=== PATIENT | male | born 1955 | race Caucasian/White ===

== ENCOUNTER → 2019-10-12 | Outpatient (CLI) | payer OTHER ==
--- NOTE | 2019-10-12 15:17 | REPPI ---
TRANSRECTAL ULTRASOUND PROSTATE, WITH ULTRASOUND GUIDANCE FOR PROSTATE BIOPSY: Transrectal prostate ultrasound performed. Prostate measures 5.2 x 4.0 x 6.1 cm for a total volume of 66.4 mL. Scattered calcifications are present with heterogeneous echotexture of the prostate. No focal mass is seen. Seminal vesicles appear unremarkable. Ultrasound guidance was provided to Dr. Cornelisu who performed ultrasound guided biopsy of the prostate. Electronically Signed by Saran Austin MD 10/12/2019 03:34 P
== END ==
LOC: M SMT PRO 08:08
PROVIDERS: ATTEND Urology
DX: R97.20 Elevated prostate specific antigen [PSA] (principal)
CPT/HCPCS: 76872; 76942; G0416

== ENCOUNTER → 2020-04-11 | Outpatient (REF) | payer BC ==
[2020-04-12 23:08] LABS: PSA TOTAL 2.5 ng/mL (0.0-4.0)
== END ==
LOC: M PLALAB 09:45
PROVIDERS: ATTEND Urology
DX: R97.20 Elevated prostate specific antigen [PSA] (principal)

== ENCOUNTER → 2020-10-18 | Outpatient (REF) | payer BC | LOC: M PLALAB 13:23 | PROVIDERS: ATTEND Urology | DX: R97.20 Elevated prostate specific antigen [PSA] (principal) ==

== ENCOUNTER → 2021-05-02 | Outpatient (CLI) | payer MEDICARE, BC | LOC: M PLALAB 11:20 | PROVIDERS: ATTEND Urology | DX: R97.20 Elevated prostate specific antigen [PSA] (principal) ==

== ENCOUNTER → 2021-11-13 | Outpatient (CLI) | payer MEDICARE, BC | LOC: M PLALAB 12:51 | PROVIDERS: ATTEND Urology | DX: R97.20 Elevated prostate specific antigen [PSA] (principal) ==

== ENCOUNTER → 2021-11-30 | Outpatient (REF) | payer MEDICARE, BC ==
[2021-11-30 18:25] LABS: APPEARANCE, URINE CLEAR (CLEAR); BACTERIA, URINE AUTO NEGATIVE (NEGATIVE); BILIRUBIN, URINE AUTO NEGATIVE (NEGATIVE); BLOOD, URINE BLOOD NEGATIVE (NEGATIVE); COLOR, URINE STRAW (YELLOW); GLUCOSE, URINE (UA) AUTO 3+ mg/dL (NEGATIVE); KETONE, URINE AUTO 1+ mg/dL (NEGATIVE); LEUKOCYTE ESTERASE, URINE AUTO NEGATIVE (NEGATIVE); NITRITE, URINE AUTO NEGATIVE (NEGATIVE); PROTEIN, URINE AUTO NEGATIVE (NEGATIVE); RBC, URINE AUTO 0 /HPF (0-3); SQUAMOUS EPITHELIAL CELL UR AU 0 /HPF (0-6); UROBILINOGEN, URINE AUTO 0.2 mg/dL (0.0-2.0); WBC, URINE AUTO 0 /HPF (0-3)
== END ==
LOC: M SMT 16:38
PROVIDERS: ATTEND Nurse Practitioner Women's Health
DX: R31.29 Other microscopic hematuria (principal)

== ENCOUNTER → 2022-11-22 | Outpatient (CLI) | payer MEDICARE, BC | LOC: M LAB 12:12 | PROVIDERS: ATTEND Nurse Practitioner Women's Health | DX: R97.20 Elevated prostate specific antigen [PSA] (principal) ==

== ENCOUNTER → 2023-11-13 | Outpatient (CLI) | payer MEDICARE, OTHER | LOC: M PLALAB 09:39 | PROVIDERS: ATTEND Urology | DX: Z87.898 Personal history of other specified conditions (principal) ==

== ENCOUNTER → 2024-11-12 | Outpatient (CLI) | payer MEDICARE, OTHER ==
[2024-11-15 15:16] LABS: PSA FREE 1.2 ng/mL; PSA TOTAL 4.7 ng/mL (< OR = 4.0)
== END ==
LOC: M PLALAB 10:24
PROVIDERS: ATTEND Urology
DX: R97.20 Elevated prostate specific antigen [PSA] (principal)